=== PATIENT | female | born 1995 | race Caucasian/White ===

== ENCOUNTER 2022-03-09 21:09 | Emergency (ER) | payer OTHER, SELFPAY | END 2022-03-09 22:44 | disposition left against medical advice (07) | PROVIDERS: Emergency Provider Emergency Medicine ==

== ENCOUNTER 2022-03-10 18:08 | Emergency (ER) | payer OTHER, SELFPAY ==
[2022-03-10 18:13] VITALS: BP 155/85; PULSE 106; RESP 22; TEMP 36.8; O2SAT 100
--- NOTE | 2022-03-10 18:16 | DI.RAD.S_ITS ---
PROCEDURE: XR RIBS LT MIN 3V W CXR1V INDICATIONS: pain, felt a pop TECHNIQUE: 2 views of the left ribs were acquired, along with a single view chest. COMPARISON: None. FINDINGS: Surgical changes and devices: None. Bones and chest wall: Acute, displaced lateral left 6th rib fracture. No suspicious bony lesions. Overlying soft tissues appear unremarkable. No subcutaneous soft tissue emphysema. Lungs and pleura: No pleural effusions or pneumothorax. Lungs appear clear. Mediastinum: Mediastinal contours appear normal. Heart size is normal. IMPRESSION: Acute, displaced lateral left 6th rib fracture. No pneumothorax. Dictated by: Martin Mann M.D. on 03/10/2022 at 18:39 Approved by: Martin Mann M.D. on 03/10/2022 at 18:40
[2022-03-10 18:44] LABS: Add Manual Diff / Slide Review NO; Basophils Absolute Auto 0 /uL (0-100); Basophils Percent Auto 0.6 % (0-2); Eosinophils Absolute Auto 100 /uL (0-450); Eosinophils Percent Auto 1.1 % (2-4); Hematocrit 37.3 % (36-46); Hemoglobin 12.6 g/dL (12.0-16.0); Lymphocytes Absolute Auto 1400 /uL (1100-4500); Lymphocytes Percent Auto 20.4 % (25-40); Mean Corpuscular HGB Conc 33.7 % (30-36); Mean Corpuscular Hemoglobin 26.7 PG (26-34); Mean Corpuscular Volume 79.3 fL (80-100); Monocytes Absolute Auto 800 /uL (0-900); Monocytes Percent Auto 11.4 % (3-14); Neutrophils Absolute Auto 4500 /uL (1500-7000); Neutrophils Percent Auto 66.5 % (50-75); Platelet Count 253 X10^3/uL (150-400); Red Cell Distribution Width 13.9 % (11.6-14.8); White Blood Cell Count 6.8 X10^3/uL (4.5-11.0)
[2022-03-10 18:51] LABS: Alanine Aminotransferase 15 IU/L (<35); Albumin 4.4 g/dL (3.5-5.0); Albumin Globulin Ratio 1.2 (1.0-2.8); Alkaline Phosphatase 53 U/L (38-126); Aspartate Aminotransferase 25 IU/L (14-36); BUN Creatinine Ratio 17.5 (6-22); Bilirubin Total 0.4 mg/dL (0.2-1.3); Blood Urea Nitrogen 11 mg/dL (7-17); Calcium 9.3 mg/dL (8.4-10.2); Carbon Dioxide 25 mmol/L (22-32); Chloride 104 mmol/L (98-107); Estimated Glomerular Filt Rate > 60 mL/min (>60); Globulin 3.6 g/dL (1.7-4.1); Glucose 77 mg/dL (70-100); HEMOLYSIS < 15 (0-50); Lipase 157 U/L (23-300); Potassium 3.8 mmol/L (3.4-5.1); Sodium 139 mmol/L (137-145)
--- NOTE | 2022-03-11 00:25 | PC.NURSE ---
To room with family at this time
--- NOTE | 2022-03-11 00:51 | ED_ITS ---
HPI - Abdominal Pain General Chief Complaint: Abdominal Pain Stated Complaint: lt. abd. pain Time Seen by Provider: 03/11/22 00:51 Source: patient Mode of arrival: Ambulatory History of Present Illness HPI narrative: Patient is a 26-year-old female who presents with left-sided abdominal and rib pain. She states that her whole family has had RSV she was coughing really hard last week and felt like something popped. She has had pain in her left ribs ever since. It hurts to breathe hurts to move. He has been taking Tylenol ibuprofen for at sometime she has relief however the pain has continued and is worsening. She now feels like it is radiating around her left side into her abdomen. No nausea vomiting. No fever or chills. She did go to her cousin's wedding which she is why she waited to come in. Related Data Home Medications Medication Instructions Recorded Confirmed No Known Home Medications 03/10/22 03/10/22 Allergies Allergy/AdvReac Type Severity Reaction Status Date / Time Penicillins Allergy Mild Hives Verified 03/10/22 15:58 Review of Systems Review of Systems Narrative: GENERAL: Denies chills, fatigue, malaise, fever, sweats, travel HEENT: Denies sinus pain, ear pain, sore throat, difficulty swallowing, neck pain RESPIRATORY: See HPI CARDIOVASCULAR: Denies chest pain, palpitations, orthopnea, edema GASTROINTESTINAL: See HPI. : Denies dysuria, frequency, incontinence, hematuria, urinary retention, flank pain. MUSCULOSKELETAL: Denies weakness, joint pain, or bony pain SKIN: No rash, no erythema, no pruritus NEUROLOGIC: Denies weakness, dizziness, headache, numbness, change in speech, confusion PSYCHIATRIC: No concerning psychosocial issues. 12 point review of systems is negative except for those stated above and HPI Patient History Social History Smoking Status: Never smoker Smoking Status: Never smoker Exam Initial Vital Signs Initial Vital Signs: Vital Signs Temperature 98.3 F 03/10/22 18:13 Pulse Rate 106 H 03/10/22 18:13 Respiratory Rate 22 03/10/22 18:13 Blood Pressure 155/85 H 03/10/22 18:13 Pulse Oximetry 100 03/10/22 18:13 Oxygen Delivery Method 03/10/22 18:13 GENERAL: Alert 26-year-old female HEENT: Head atraumatic,EOMI, pupils reactive, face symmetric, moist mucous membranes CARDIOVASCULAR: Regular rate and rhythm without murmurs, rubs or gallops. RESPIRATORY: Breath sounds equal bilaterally, no wheezes rales or rhonchi. No paradoxical movement no sign of trauma ABDOMEN: Soft, nontender. Normoactive bowel sounds all 4 quadrants. No guarding or rebound. BACK: Left posterior rib 7 or 8 is is very tender to touch EXTREMITIES: Normal range of motion, no clubbing or edema. Neurovascularly intact NEUROLOGICAL: Alert and oriented x4. SKIN: Warm, dry, no laceration, no petechiae, no rashes or lesions. Course Orders Ordered: Discontinued Medications Ketorolac Tromethamine (Ketorolac 30 Mg/Ml Vial) 30 mg IM NOW ONE Stop: 03/11/22 01:19 Last Admin: 03/11/22 01:30 Dose: 30 mg Documented By: ANTONIA Vital Signs Vital signs: Vital Signs - 8 hr 03/11/22 01:35 Temperature 97.9 F Pulse Rate 103 H Respiratory Rate 16 Blood Pressure 139/85 Pulse Oximetry 99 Oxygen Delivery Method Room Air MDM - Abdominal Pain Lab Data Result diagrams: 03/10/22 18:23 03/10/22 18:23 Labs: Lab Results 03/10/22 03/10/22 Range/Units 18:23 18:23 WBC 6.8 (4.5-11.0) X10^3/uL RBC 4.70 (4.0-5.2) X10^6/uL Hgb 12.6 (12.0-16.0) g/dL Hct 37.3 (36-46) % MCV 79.3 L (80-100) fL MCH 26.7 (26-34) PG MCHC 33.7 (30-36) % RDW 13.9 (11.6-14.8) % Plt Count 253 (150-400) X10^3/uL Neut % (Auto) 66.5 (50-75) % Lymph % (Auto) 20.4 L (25-40) % [place] % (Auto) 11.4 (3-14) % Eos % (Auto) 1.1 L (2-4) % Baso % (Auto) 0.6 (0-2) % Neut # (Auto) 4500 (6153-2157) /uL Lymph # (Auto) 1400 (5994-9689) /uL [place] # (Auto) 800 (0-900) /uL Eos # (Auto) 100 (0-450) /uL Baso # (Auto) 0 (0-100) /uL Sodium 139 (137-145) mmol/L Potassium 3.8 (3.4-5.1) mmol/L Chloride 104 (98-107) mmol/L Carbon Dioxide 25 (22-32) mmol/L BUN 11 (7-17) mg/dL Creatinine 0.63 (0.52-1.04) mg/dL Estimated GFR > 60 (>60) mL/min BUN/Creatinine Ratio 17.5 (6-22) Glucose 77 (70-100) mg/dL Calcium 9.3 (8.4-10.2) mg/dL Total Bilirubin 0.4 (0.2-1.3) mg/dL AST 25 (14-36) IU/L ALT 15 (<35) IU/L Alkaline Phosphatase 53 (38-126) U/L Total Protein 8.0 (6.3-8.2) g/dL Albumin 4.4 (3.5-5.0) g/dL Globulin 3.6 (1.7-4.1) g/dL Albumin/Globulin Ratio 1.2 (1.0-2.8) Lipase 157 (23-300) U/L Imaging Data Chest x-ray: Radiologist's Impression: XRay Report Signed Patient: Leonie Lima I MR#: [id number] : 1995 Acct:[id number] Age/Sex: 26 / F Date of Service: 03/10/22 Loc: ED Accession Number: [id number] ?? Procedure: XR ribs LT min 3V w CXR1V Ordering Provider: Daylin Zacarias D.O. PROCEDURE:? XR RIBS LT MIN 3V W CXR1V ? INDICATIONS:? pain, felt a pop ? TECHNIQUE:? 2 views of the left ribs were acquired, along with a single view chest.? ? COMPARISON:? None. ? FINDINGS:? ? Surgical changes and devices:? None.? ? Bones and chest wall:? Acute, displaced lateral left 6th rib fracture.? No suspicious bony lesions.? Overlying soft tissues appear unremarkable.? No subcutaneous soft tissue emphysema. ? Lungs and pleura:? No pleural effusions or pneumothorax.? Lungs appear clear.? ? Mediastinum:? Mediastinal contours appear normal.? Heart size is normal.? ? IMPRESSION:? Acute, displaced lateral left 6th rib fracture.? No pneumothorax. ? ? Dictated by: Martin Mann M.D. on 03/10/2022 at 18:39 ? ? Approved by: Martin Mann M.D. on 03/10/2022 at 18:40 MDM Narrative Medical decision making narrative: Patient coughed and had immediate left-sided rib pain. It has been ongoing for a week. X-ray did find a displaced 6th rib fractures. I did feel it on exam. With some massage and pressure patient actually had significant improvement. Discharge Plan Departure Patient Disposition: Home Clinical Impression: Rib cage dysfunction Instructions: DI for Rib Contusion Activity Restrictions/Additional Instructions: *You have been diagnosed with 6 rib dislocation *What to do: At this time he did dislocate a rib from coughing. It could still be sore but hopefully start to feel better. You may try ice or heat *Continue to take medications as directed Ibuprofen 600 mg every 6 hours if needed for [id number] pain Tylenol 1000 mg every 6 hours if needed for [id number] pain *Follow up with your primary care provider in 2-3 days or call [phone] *Return to ER if you should have increasing pain shortness of breath fever or any new, worsening or concerning symptoms Prescriptions: No Action No Known Home Medications Referrals: Hubert,MD Kerry [Primary Care Provider] - Stand Alone Forms: Work Release Note Visit Report Forms: Patient Portal/API
--- NOTE | 2022-03-11 01:00 | PC.NURSE ---
MD at bedside - family present
[2022-03-11] MEDS: KETOROLAC 30 MG/ML VIAL IM (01:30)
[2022-03-11 01:35] VITALS: BP 139/85; PULSE 103; RESP 16; TEMP 36.6; O2SAT 99
== END 2022-03-11 01:36 | disposition home or self-care (01) ==
PROVIDERS: Emergency Medicine; Emergency Provider Emergency Medicine
DX: R07.81 Pleurodynia (principal); R10.9 Unspecified abdominal pain
CPT/HCPCS: 71101; 80053; 83690; 85025; 96372; 99283; 99284; J1885